=== PATIENT | male | born 1970 | race Caucasian/White ===

== ENCOUNTER 2025-07-08 13:23 | Outpatient (CLI) | payer OTHER | END 2025-07-08 13:24 | disposition home or self-care (01) | LOC: SCSMRI 13:23 | DX: M54.50 Low back pain, unspecified (principal); M47.816 Spondylosis without myelopathy or radiculopathy, lumbar region; M47.817 Spondylosis without myelopathy or radiculopathy, lumbosacral region | CPT/HCPCS: 72148 ==